=== PATIENT | male | born 1950 | race Caucasian/White ===

== ENCOUNTER 2016-07-06 13:44 | Emergency (ER) | payer MEDICARE ==
[2016-07-06 14:59] VITALS: BP 136/90
--- NOTE | 2016-07-06 16:18 | RAD ---
Indication: Right hand injury with attention to the fifth metacarpal. 4 views of the right hand demonstrates no fracture. No other bone or joint abnormality is identified. IMPRESSION: No fracture of the right hand is noted.
--- NOTE | 2016-07-06 16:19 | RAD ---
Indication: Toe injury. 3 views of the great toe demonstrates a comminuted nondisplaced fracture through the proximal and of the distal phalanx of the great toe. There is intra-articular extension. IMPRESSION: Comminuted fracture of the proximal end of the distal phalanx of the great toe with fracture line extending into the interphalangeal joint.
--- NOTE | 2016-07-06 22:01 | UC ---
Tatiana Alexander Anna, scribed for Jordyn Moon DO on 07/06/16 at 1519 . Upper Extremity HPI - HPI Summary HPI Summary: Patient is a 66 y/o male coming to [facility] [place] after a fall that occurred last night at 18:45. He was walking his dog last night and tripped over a wire fence. He landed on his left great toe and right hand but was ambulatory at the scene. He also scraped his knee. The toe pain is of severity 3/10 when walking but is otherwise not painful. It is a sharp pain when pressed but is alleviated by rest. His hand pain is of severity 4/10 with normal use but is 6/10 when gripping something like a grocery bag. Denies head injury, WERNER, nausea, dizziness , vomiting, LOC, numbness, weakness, tingling, fever, chills, rashes, sore throat, ear ache, eye goop, ankle or heel pain. He takes Proscar, which increases frequency of urination but is baseline for him. - History of Current Complaint Chief Complaint: UCUpperExtremity Stated Complaint: FELL HAND AND TOE INJURY Time Seen by Provider: 07/06/16 15:12 Hx Obtained From: Patient Onset/Duration: Sudden Onset, Lasting Hours, Still Present Pain Intensity: 4 Pain Scale Used: 0-10 Numeric Location Of Pain: Is Discrete @ - right hand, great left toe Aggravating Factor(s): Movement Alleviating Factor(s): Rest Associated Signs And Symptoms: Positive: Swelling, Redness, Bruising - Allergies/Home Medications Allergies/Adverse Reactions: Allergies Allergy/AdvReac Type Severity Reaction Status Date / Time Penicillins Allergy Unknown Verified 07/06/16 14:59 Reaction Details Sulfa Antibiotics Allergy Unknown Verified 07/06/16 14:59 Reaction Details Home Medications: Home Medications Calcium-Magnesium W/ Vitamin D [Calcium 600/Magnesium 300] 1 cap PO 07/06/16 [ History] Finasteride TAB* [Proscar TAB*] 07/06/16 [History] PMH/Surg Hx/FS Hx/Imm Hx Endocrine History Of: Reports: Diabetes Cardiovascular History Of: Reports: Hypertension GI/ History Of: Reports: Kidney Stones - HX OF - Surgical History Surgical History: Yes Surgery Procedure, Year, and Place: Rt knee replacement, VASCULAR SURGERY LEFT LEG AND RIGHT LEG - Family History Known Family History: Positive: Other - [place] Negative: Cardiac Disease, Hypertension, Diabetes - Social History Alcohol Use: None Alcohol Amount: NONE SINCE 2007 Substance Use Type: None Smoking Status (MU): Former Smoker Length of Time of Smoking/Using Tobacco: 3 YRS Have You Smoked in the Last Year: No When Did the Patient Quit Smoking/Using Tobacco: 1969 - Immunization History Most Recent Influenza Vaccination: Mar 24 2015 Most Recent Tetanus Shot: 2011 Most Recent Pneumonia Vaccination: WITHIN 5 YRS Hx Tetanus, Diphtheria Vaccination: Yes - 2011 Tetanus Review of Systems Constitutional: Negative Skin: Other - abrasion on right knee Eyes: Negative ENT: Negative Respiratory: Negative Cardiovascular: Negative Gastrointestinal: Negative Genitourinary: Frequency - baseline Motor: Negative Neurovascular: Negative Musculoskeletal: Arthralgia - right hand, great left toe Neurological: Negative Psychological: Negative All Other Systems Reviewed And Are Negative: Yes Physical Exam Triage Information Reviewed: Yes Appearance: Well-Appearing, No Pain Distress, Well-Nourished Vital Signs: Initial Vital Signs Temp 97.3 F 07/06/16 14:55 Pulse 86 07/06/16 14:55 Resp 16 07/06/16 14:55 BP 136/90 07/06/16 14:55 Pulse Ox 97 07/06/16 14:55 Vital Signs Reviewed: Yes Eyes: Positive: Conjunctiva Clear. Negative: Discharge ENT: Positive: Hearing grossly normal. Negative: Muffled/hoarse voice Neck: Positive: Supple, Nontender Respiratory: Positive: Lungs clear, Normal breath sounds, No respiratory distress, No accessory muscle use Cardiovascular: Positive: RRR, No Murmur Musculoskeletal Exam: Other - Tender, bruised, swollen fifth metacarpal and carpals. 1 cm superficial laceration on right hand. Tender, bruised, swollen distal first metatarsal, proximal and distal phalanx. Neurological: Positive: Alert, Muscle Tone Normal Psychological Exam: Normal Psychological: Positive: Age Appropriate Behavior Skin Exam: Normal - warm, dry, normal color Diagnostics - Radiology Hand XR Xray Interpretation: No Acute Changes Radiology Interpretation Completed By: Radiologist - IMPRESSION: No fracture of the right hand is noted. Toe XR Xray Interpretation: Positive (See Comments) Radiology Interpretation Completed By: Radiologist - IMPRESSION: Comminuted fracture of the proximal end of the distal phalanx of the great toe with fracture line extending into the interphalangeal joint. Upper Extremity Course/Dx - Differential Dx/Diagnosis Differential Diagnosis/HQI/PQRI: Contusion, Fracture (Closed), Strain, Sprain Provider Diagnoses: toe fx, finger sprain Discharge - Discharge Plan Condition: Stable Disposition: HOME Patient Education Materials: Toe Fracture (ED), Finger Sprain (ED) Referrals: Geri Loyd MD [Primary Care Provider] - If Needed Eufemia Connelly MD [Medical Doctor] - (FOLLOW UP IN 3-5 DAYS OR PER ORTHO) The documentation as recorded by the Tatiana curiel Anna accurately reflects the service I personally performed and the decisions made by , Jordyn Moon DO.
== END 2016-07-06 17:15 | disposition home or self-care (01) ==
LOC: UCEAST 13:44
DX: S92.425A Nondisplaced fracture of distal phalanx of left great toe, initial encounter for closed fracture (principal); S63.656A Sprain of metacarpophalangeal joint of right little finger, initial encounter; S80.211A Abrasion, right knee, initial encounter; W01.0XXA Fall on same level from slipping, tripping and stumbling without subsequent striking against object, initial encounter; Y93.K1 Activity, walking an animal; Y92.9 Unspecified place or not applicable; Z88.0 Allergy status to penicillin; Z88.2 Allergy status to sulfonamides; Z87.891 Personal history of nicotine dependence
CPT/HCPCS: 99213; G0463